=== PATIENT | female | born 2000 | race Caucasian/White ===

== ENCOUNTER 2018-08-22 12:13 | Emergency (ER) | payer OTHER ==
--- NOTE | 2018-08-22 12:37 | RADIOLOGY REPORT (SQ) ---
EXAM DESCRIPTION: ELBOW RIGHT OVER 2 VIEWS COMPLETED DATE/TIME: 08/22/2018 12:28 pm REASON FOR STUDY: dog bite COMPARISON: None. NUMBER OF VIEWS: Four views. TECHNIQUE: AP, lateral, and both oblique radiographic images acquired of the right elbow. LIMITATIONS: None. FINDINGS: MINERALIZATION: Normal. BONES: No acute fracture or dislocation. No worrisome bone lesions. JOINT: No effusion. SOFT TISSUES: No soft tissue swelling. No foreign body. OTHER: No other significant finding. IMPRESSION: NEGATIVE STUDY OF THE RIGHT ELBOW. NO RADIOGRAPHIC EVIDENCE OF ACUTE INJURY. TECHNICAL DOCUMENTATION: JOB ID: [id number] [employer]- All Rights Reserved Reading location - IP/workstation name: [email or web address]
[2018-08-22] MEDS ORDERED: DIPH/PERTUSS(ACELL)/TETANUS VAC/PF 0.5 ML SYR (>=10YO) IM ONE (13:06)
[2018-08-22] MEDS ORDERED: CEFTRIAXONE INJ 1000 MG VIAL IM ONE (13:07)
[2018-08-22] MEDS ORDERED: LIDOCAINE 1% INJ-PF (10 MG/ML) 30 ML SDV ONE (13:26)
--- NOTE | 2018-08-22 14:05 | ER Document Report ---
ED Animal Bite - General Chief Complaint: Dog Bite Stated Complaint: DOG BITE Time Seen by Provider: 08/22/18 13:01 Mode of Arrival: Ambulatory Information source: Patient, Relative Notes: Patient is a 18-year-old female brought into emergency room by mother. 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 There is 1 puncture wound noted on the right elbow. Patient is complaining of swelling and pain to the elbow area. No other injuries sustained. Dog is known and is a pet. TRAVEL OUTSIDE OF THE [place] IN LAST 30 DAYS: No - HPI Location of injury: RUE Severity of injury: Bitten Onset: Just prior to arrival Where did incident occur: At work/veterinary hospital Quality of pain: Pressure, Sharp, Throbbing Pain Level: 3 Severity: Moderate Context of attack: "Provoked" attack, Other - It was a "provoked attack" patient was in the dog's territory so he has spoke. 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 Type of animal: Dog Appearance of animal: Appeared well Breed and color: Lab Animal's immunizations: UTD Animal captured or known: Yes Animal control notified: Yes Animal control form completed: Yes - Related Data Allergies/Adverse Reactions: No Known Allergies Allergy (Verified 08/22/18 12:16) Past Medical History - General Information source: Patient, Relative - Social History Smoking Status: Never Smoker Cigarette use (# per day): No Chew tobacco use (# tins/day): No Smoking Education Provided: No Frequency of alcohol use: None Drug Abuse: None Lives with: Family Family History: Reviewed & Not Pertinent Patient has suicidal ideation: No Patient has homicidal ideation: No Renal/ Medical History: Denies: Hx Peritoneal Dialysis Review of Systems - Review of Systems Constitutional: No symptoms reported EENT: No symptoms reported Cardiovascular: No symptoms reported Respiratory: No symptoms reported Gastrointestinal: No symptoms reported Genitourinary: No symptoms reported Female Genitourinary: No symptoms reported Musculoskeletal: Joint pain, Joint swelling, Muscle pain Skin: No symptoms reported Hematologic/Lymphatic: No symptoms reported Neurological/Psychological: No symptoms reported -: Yes All other systems reviewed and negative Physical Exam - Vital signs Vitals: Temp Pulse Resp BP Pulse Ox 98.8 F 100 18 119/87 H 99 08/22/18 12:19 08/22/18 12:19 08/22/18 12:19 08/22/18 12:19 08/22/18 12:19 Interpretation: Normal - Notes Notes: Patient is a well-nourished well-developed female - General General appearance: Alert - HEENT Head: Normocephalic, Atraumatic, Open wounds - Respiratory Respiratory status: No respiratory distress Chest status: Nontender Breath sounds: Normal. No: Rales, Rhonchi, Stridor, Wheezing Chest palpation: Normal - Cardiovascular Rhythm: Regular Heart sounds: Normal auscultation Murmur: No - Extremities General upper extremity: Tender, Edema, Normal ROM, Normal strength. No: Normal inspection, Normal temperature Elbow: Tender, Limited ROM, Other - Examination patient's right arm shows her to be moderate swelling around the elbow area. There is a 1 puncture wound on the lateral epicondylar area in the soft tissue. Very tender to palpate around that portion of the elbow. On inspection it is impossible to tell whether the tooth punctured the joint space of the elbow.. No: Ecchymosis Forearm: Normal Wrist: Normal Hand: Normal - Neurological Neuro grossly intact: Yes Cognition: Normal Morgan Coma Scale Eye Opening: Spontaneous Morgan Coma Scale Verbal: Oriented Morgan Coma Scale Motor: Obeys Commands Morgan Coma Scale Total: 15 Speech: Normal Course - Re-evaluation Re-evalutation: 08/22/18 14:13 I am concerned about possibility of puncturing the joint space on the elbow. I have given patient a Rocephin shot just to start to cover. She is also received a tetanus shot. We will treat her with the Augmentin as directed by CDC and she will return here if they have seeing any types of streaking or increased swelling. Told mother and patient both that most likely that joint space was not punctured but in the event that it was we need to watch very carefully for any type signs of infection. - Vital Signs Vital signs: Temp Pulse Resp BP Pulse Ox 98.8 F 100 18 119/87 H 99 08/22/18 12:19 08/22/18 12:19 08/22/18 12:19 08/22/18 12:08/22/18 12:19 Discharge - Discharge Clinical Impression: Dog bite of right elbow Qualifiers: Encounter type: initial encounter Qualified Code(s): S51.051A - Open bite, right elbow, initial encounter; W54.0XXA - Bitten by dog, initial encounter; W54.0XXA - Bitten by dog, initial encounter Condition: Stable Disposition: HOME, SELF-CARE Instructions: Animal Bites ([facility]) Additional Instructions: Home today and rest. Ice to the area 3 times a day. Use the sling until pain is resolved. Take all of the antibiotics. I have written you for a Diflucan pill this is to stop you from getting a yeast infection. You can return to work tomorrow light duty limited use of the right arm for the next 4 days. As we discussed I am concerned that possibility of a puncture wound to the joint space the antibiotics that should cover it however if you have any concerns that the elbow is swelling more it is starting to streak or you have any concerns at all return to ER for recheck. Prescriptions: Amox Tr/Potassium Clavulanate [Augmentin 875-125 Tablet] 1 tab PO BID 10 Days # 20 tablet Fluconazole [Diflucan] 150 mg PO ONCE PRN #1 tablet PRN Reason: Ibuprofen 600 mg PO TID #30 tablet Forms: Return to Work Referrals: KANDACE ODOM [employer] WORKER-C [Primary Care Provider] - Follow up as needed
[2018-08-22 14:30] VITALS: BP 130/70
== END 2018-08-22 14:46 | disposition home or self-care (01) ==
LOC: ER 12:13
DX: S51.051A Open bite, right elbow, initial encounter (principal); W54.0XXA Bitten by dog, initial encounter; Y99.0 Civilian activity done for income or pay; Z23 Encounter for immunization
CPT/HCPCS: 99283; 96372; 90471; 73080; 90715; J3490; J0696